=== PATIENT | female | born 1975 ===

== ENCOUNTER 2016-04-12 16:00 | Emergency (ER) | payer OTHER ==
[2016-04-12] MEDS ORDERED: APAP/HYDROCODONE 325/5 TAB PO ONE (16:31)
[2016-04-12] MEDS ORDERED: CYCLOBENZAPRINE 10 MG TAB PO ONE (16:31)
[2016-04-12 16:41] VITALS: RESP 18; TEMP 97.6; O2SAT 97
[2016-04-12] MEDS ORDERED: CYCLOBENZAPRINE 10 MG TAB ONE (16:42)
[2016-04-12] MEDS ORDERED: APAP/HYDROCODONE 325/5 TAB ONE (16:42)
[2016-04-12 17:41] VITALS: BP 132/78; PULSE 78
== END 2016-04-12 17:38 | disposition home or self-care (01) ==
LOC: ED 16:00
DX: S23.3XXA Sprain of ligaments of thoracic spine, initial encounter (principal); S33.5XXA Sprain of ligaments of lumbar spine, initial encounter; S39.012A Strain of muscle, fascia and tendon of lower back, initial encounter; W18.30XA Fall on same level, unspecified, initial encounter
CPT/HCPCS: 72070; 72120; 99282; 99283

== ENCOUNTER 2016-06-05 17:40 | Emergency (ER) | payer OTHER ==
[2016-06-05 17:56] VITALS: RESP 20
[2016-06-05 18:29] LABS: BASOPHILS % (AUTO) 1 % (0-3); EOSINOPHILS % (AUTO) 4 % (0-9); HEMATOCRIT 42 % (35-47); MEAN CORPUSCULAR HGB CONC 35.6 gm/dl (32.0-36.0); MEAN CORPUSCULAR VOLUME 90 fL (81-99); MONOCYTES % (AUTO) 4.7 % (0-12); NEUTROPHILS % (AUTO) 73.6 % (37-80)
[2016-06-05 18:45] VITALS: BP 140/88; PULSE 94; TEMP 98.6; O2SAT 96
== END 2016-06-05 18:51 | disposition home or self-care (01) ==
LOC: ED 17:40
DX: J06.9 Acute upper respiratory infection, unspecified (principal); B97.89 Other viral agents as the cause of diseases classified elsewhere
CPT/HCPCS: 36415; 85025; 87804; 99282; 99283

== ENCOUNTER 2016-08-01 17:37 | Emergency (ER) | payer OTHER ==
[2016-08-01 18:16] VITALS: BP 134/81; PULSE 88; RESP 20; TEMP 97.8; O2SAT 98
[2016-08-01 18:26] LABS: APPEARANCE,URINE Cloudy; BILIRUBIN,URINE 1+ (NEGATIVE); COLOR,URINE Dark yellow; GLUCOSE, URINE (UA) NEGATIVE (NEGATIVE); KETONES,URINE TRACE (NEGATIVE); LEUKOCYTE ESTERASE ,URINE 1+ (NEGATIVE); NITRATE,URINE POSITIVE (NEGATIVE); OCCULT BLOOD,URINE 2+ (NEG-TRACE); UROBILINOGEN,URINE 0.2 (0.2-1.0 EU)
[2016-08-01 18:55] LABS: ICTOTEST,URINE NEGATIVE (NEGATIVE)
[2016-08-01] MEDS ORDERED: LEVOFLOXACIN 500 MG TAB ONE (19:09)
[2016-08-01] MEDS ORDERED: IBUPROFEN 400 MG TAB ONE (19:09)
[2016-08-01] MEDS ORDERED: IBUPROFEN 400 MG TAB PO ONE (19:10)
[2016-08-01] MEDS ORDERED: LEVOFLOXACIN 500 MG TAB PO ONE (19:10)
== END 2016-08-01 19:18 | disposition home or self-care (01) ==
LOC: ED 17:37
DX: N39.0 Urinary tract infection, site not specified (principal)
CPT/HCPCS: 81001; 87077; 87088; 87186; 99282; 99283

== ENCOUNTER 2016-12-17 19:52 | Emergency (ER) | payer OTHER ==
[2016-12-17] MEDS ORDERED: PREDNISONE 20 MG TAB PO ONE (21:38)
[2016-12-17] MEDS ORDERED: PREDNISONE 20 MG TAB ONE (21:44)
[2016-12-17] MEDS ORDERED: ALPRAZOLAM 0.25 MG TAB PO SCH (21:45)
[2016-12-17] MEDS ORDERED: ALPRAZOLAM 0.25 MG TAB ONE (21:47)
[2016-12-18 03:52] VITALS: BP 154/106; PULSE 95; RESP 20; TEMP 98.2; O2SAT 99
== END 2016-12-17 22:15 | disposition home or self-care (01) ==
LOC: ED 19:52
DX: F41.9 Anxiety disorder, unspecified (principal)
CPT/HCPCS: 99282

== ENCOUNTER 2018-02-11 20:20 | Emergency (ER) | payer OTHER ==
[2018-02-11] MEDS ORDERED: ALPRAZOLAM 0.25 MG TAB PO ONE (21:05)
[2018-02-11] MEDS ORDERED: ALPRAZOLAM 0.25 MG TAB ONE (21:08)
[2018-02-11 22:05] VITALS: PULSE 99; RESP 20; TEMP 96.2; O2SAT 96
== END 2018-02-11 21:25 ==
LOC: ED 20:20
DX: M32.9 Systemic lupus erythematosus, unspecified (principal); I10 Essential (primary) hypertension
CPT/HCPCS: 99282; A9270-GY

== ENCOUNTER 2018-07-23 19:47 | Emergency (ER) | payer OTHER ==
[2018-07-23 19:56] VITALS: RESP 18; TEMP 97
[2018-07-23] MEDS ORDERED: KETOROLAC TROMETHAMINE 30 MG/ML SOL IV ONE (20:14)
[2018-07-23] MEDS ORDERED: SODIUM CHLORIDE 0.9% 1000 ML SOL IV SCH (20:15)
[2018-07-23 20:55] LABS: BASOPHILS % (AUTO) 1 % (0-3); EOSINOPHILS % (AUTO) 4 % (0-9); HEMATOCRIT 39 % (35-47); HEMOGLOBIN 13.5 gm/dl (12.0-15.5); LYMPHOCYTES % (AUTO) 20.5 % (10-50); MEAN CORPUSCULAR HEMOGLOBIN 30.6 pg (27.0-32.0); MEAN CORPUSCULAR HGB CONC 34.3 gm/dl (32.0-36.0); MEAN CORPUSCULAR VOLUME 89 fL (81-99); MONOCYTES % (AUTO) 6.8 % (0-12); NEUTROPHILS % (AUTO) 67.9 % (37-80)
[2018-07-23] MEDS ORDERED: KETOROLAC TROMETHAMINE 30 MG/ML SOL ONE (21:00)
[2018-07-23 21:05] LABS: APPEARANCE,URINE Clear; BILIRUBIN,URINE NEGATIVE (NEGATIVE); COLOR,URINE Yellow; GLUCOSE, URINE (UA) 2+ (NEGATIVE); KETONES,URINE NEGATIVE (NEGATIVE); LEUKOCYTE ESTERASE ,URINE NEGATIVE (NEGATIVE); NITRATE,URINE NEGATIVE (NEGATIVE); OCCULT BLOOD,URINE NEGATIVE (NEG-TRACE); UROBILINOGEN,URINE 0.2 (0.2-1.0 EU)
[2018-07-23 21:11] LABS: ALBUMIN 3.6 gm/dl (3.4-5.0); BILIRUBIN,TOTAL 0.2 mg/dl (0.2-1.0); CALCIUM 8.8 mg/dl (8.5-10.1); CARBON DIOXIDE 26.1 mEq/L (21-32); CREATININE 0.77 mg/dl (0.60-1.00); POTASSIUM 4.4 mMol/L (3.5-5.1); TOTAL PROTEIN 7.5 gm/dl (6.4-8.2)
[2018-07-23] MEDS ORDERED: MORPHINE SULFATE 10 MG/ML SOL IV ONE (21:28)
[2018-07-23] MEDS ORDERED: MORPHINE SULFATE 10 MG/ML SOL ONE (21:29)
[2018-07-23 21:36] LABS: BACTERIA NEGATIVE (< 1+); CRYSTALS NEGATIVE (0-3 AVE/HPF); EPITHELIAL CELLS 0-1 (SQUAMOUS); RBC,URINE NEG (0-3AV/HPF); WBC,URINE NEG (0-5AV/HPF)
[2018-07-23 22:36] VITALS: BP 129/95; PULSE 90; O2SAT 97
== END 2018-07-23 22:15 ==
LOC: ED 19:47
DX: E11.8 Type 2 diabetes mellitus with unspecified complications (principal)
CPT/HCPCS: 74177; 80053; 81001; 84703; 85025; 96365; 96374; 96375; 99283; 99285; J1885; J2270; Q9967

== ENCOUNTER 2018-08-04 18:03 | Emergency (ER) | payer OTHER ==
[2018-08-04] MEDS ORDERED: SODIUM CHLORIDE 0.9% 1000ML 1,000 ML IV ONE (18:14)
[2018-08-04] MEDS ORDERED: HYDROMORPHONE 1 MG/ML SYRINGE ONE (18:17)
[2018-08-04] MEDS ORDERED: HYDROMORPHONE 1 MG/ML SYRINGE IV ONE (18:18)
[2018-08-04] MEDS ORDERED: ONDANSETRON HCL 4 MG/2 ML SOL ONE (18:20)
[2018-08-04] MEDS ORDERED: ONDANSETRON HCL 4 MG/2 ML SOL IV ONE (18:21)
[2018-08-04] MEDS ORDERED: LORAZEPAM 2 MG/ML SOL IV ONE (18:37)
[2018-08-04] MEDS ORDERED: LORAZEPAM 2 MG/ML SOL ONE (18:42)
[2018-08-04] MEDS ORDERED: SODIUM CHLORIDE 0.9% 1000ML 1,000 ML IV SCH (18:45)
[2018-08-04 18:52] LABS: BASOPHILS % (AUTO) 2 % (0-3); EOSINOPHILS % (AUTO) 4 % (0-9); HEMATOCRIT 42 % (35-47); HEMOGLOBIN 13.9 gm/dl (12.0-15.5); LYMPHOCYTES % (AUTO) 20.7 % (10-50); MEAN CORPUSCULAR HEMOGLOBIN 30.3 pg (27.0-32.0); MEAN CORPUSCULAR HGB CONC 33.4 gm/dl (32.0-36.0); MEAN CORPUSCULAR VOLUME 91 fL (81-99); MONOCYTES % (AUTO) 7.4 % (0-12); NEUTROPHILS % (AUTO) 66.3 % (37-80)
[2018-08-04 19:02] LABS: ALBUMIN 3.3 gm/dl (3.4-5.0); ALCOHOL < 0.003 gm/dl (0.000-0.08); ALKALINE PHOSPHATASE 101 IU/L (46-116); ALT 29 IU/L (14-63); AST 38 IU/L (15-37); BILIRUBIN,TOTAL 0.3 mg/dl (0.2-1.0); BLOOD UREA NITROGEN 8 mg/dl (7-18); CALCIUM 8.6 mg/dl (8.5-10.1); CARBON DIOXIDE 24.7 mEq/L (21-32); CHLORIDE 103 mMol/L (98-107); CREATININE 0.62 mg/dl (0.60-1.00); GLUCOSE 194 mg/dl (74-106); POTASSIUM 4.7 mMol/L (3.5-5.1); SALICYLATE < 2.8 mg/dl (2.8-30.0); SODIUM 137 mMol/L (136-145); TOTAL PROTEIN 7.1 gm/dl (6.4-8.2)
[2018-08-04 19:03] LABS: ACETAMINOPHEN < 2 ug/ml (10-30)
[2018-08-04 19:52] VITALS: BP 133/86; PULSE 113; RESP 20; TEMP 98.3; O2SAT 93
== END 2018-08-04 18:55 | disposition short-term general hospital (02) | DRG 914 ==
LOC: ED 18:03
DX: S55.112A Laceration of radial artery at forearm level, left arm, initial encounter (principal); S61.511A Laceration without foreign body of right wrist, initial encounter; E11.9 Type 2 diabetes mellitus without complications; E66.01 Morbid (severe) obesity due to excess calories; E03.9 Hypothyroidism, unspecified; F41.9 Anxiety disorder, unspecified
CPT/HCPCS: 36415; 80053; 80307; 85025; 94762; 96365; 96374; 96375; 99291; G0390; J2060; J2405; J1170